=== PATIENT | male | born 1995 | race Caucasian/White ===

== ENCOUNTER → 2020-03-25 | Outpatient (CLI) | payer BC ==
[~2020-03-25] MED LIST: ACULAR5 ML RIGHTEYE; CYCL10 PO; ERYT1OIN RIGHTEYE; NAPR500 PO
== END | disposition home or self-care (01) ==
LOC: LAB EV 11:27 → LAB SHORT 11:27
DX: R05 Cough (principal)
CPT/HCPCS: 87081